=== PATIENT | male | born 1955 | race African-American/Black ===

== ENCOUNTER 2017-08-16 05:40 | Day surgery (SDC) | payer MEDICAID ==
[2017-08-15 14:27] LABS: BASOPHILS 0.2 % (0-2); EOSINOPHILS 6.2 % (0-7); HEMATOCRIT 41.8 % (42.0-54.0); HEMOGLOBIN 13.8 g/dL (13.5-17.5); IMMATURE GRANULOCYTES 0.2 % (0-5); LYMPHOCYTES 34.9 % (15-50); MCV 93.9 fL (80.0-100.0); MEAN PLATELET VOLUME 9.6 fL (7.4-10.4); MONOCYTES 7.9 % (2-11); NEUTROPHILS 50.6 % (40-80); PLATELET COUNT 164 10x3/uL (130-400); RBC 4.45 10x6/uL (4.20-6.10); WBC 5.3 10x3/uL (4.8-10.8)
[2017-08-15 14:39] LABS: CALCIUM 8.9 mg/dL (8.5-10.1); CARBON DIOXIDE 26.4 mmol/L (21.0-32.0); CREATININE - SERUM 1.2 mg/dL (0.6-1.3); POTASSIUM - SERUM 4.4 mmol/L (3.5-5.1)
[~2017-08-16] VITALS: Ht 185.4 cm; Wt 95.7 kg
--- NOTE | ~2017-08-16 | OP ---
PATIENT NAME: NIKITA BRADLEY MEDICAL RECORD: [id number] LOCATION:D[facility]OPS ADMISSION DATE: SURGEON: REINIER METZGER MD DATE OF OPERATION: 08/16/2017 PREOPERATIVE DIAGNOSES: 1. Left inguinal hernia. 2. Hypertension. 3. Rheumatoid arthritis. POSTOPERATIVE DIAGNOSES: 1. Left inguinal hernia. 2. Hypertension. 3. Rheumatoid arthritis. PROCEDURE: Left inguinal hernia repair with medium PHS mesh. SURGEON: Reinier Metzger MD REPORT OF PROCEDURE: The patient's left groin was prepped and draped in sterile fashion. An oblique incision was made above the inguinal ligament. Electrocautery was used to dissect through the subcutaneous tissue to the external oblique fascia. This fascia was opened up using electrocautery down to the external ring. The spermatic cord was elevated and a Negley was placed around it. The ilioinguinal nerve was found and high ligated. The patient did not have a distinct hernia defect, but he had a direct and indirect cord lipoma, which were both moderately large. These cord lipomas were high ligated with 2-0 silks. The remainder of the inguinal floor appeared to be intact. The spermatic cord had no sign of any hernia sac. An opening was made in the inguinal floor and the preperitoneal space of Retzius was opened up in all directions. A medium PHS mesh was inserted and sutured down on all sides using interrupted 0 Vicryls. The wound was irrigated out with normal saline and care was taken to make sure there was no sign of any bleeding. The external oblique fascia was then closed with running 2-0 Vicryl, Rita's was closed with interrupted 3-0 Vicryls and the skin was closed with running subcutaneous 5-0 Monocryl. A total of 10 mL of 0.25% Marcaine with epinephrine was infused into the surrounding tissues and the wounds were dressed appropriately. COMPLICATIONS: None. CONDITION: Stable. ANESTHESIA: General endotracheal and local. BLOOD LOSS: Minimal. TRANSINT:[id number] Voice Confirmation ID: [id number] DOCUMENT ID: [id number] OPERATIVE REPORT [id number] NIKITA BRADLEY REINIER METZGER MD CC: YAN GAY MD [id number] DICTATION DATE: 08/16/17 1025 PLUMBING ENGINEER: 08/16/17 [id number] [place] [address]
[~2017-08-16 05:40] MED LIST: FOLIC ACID1 MG PO; METHOTREXATE2.5 MG PO; NORVASC5 MG PO; PREDNISONE1 MG PO
[2017-08-16 06:58] VITALS: BP 128/78; Ht 185.4 cm; Wt 95.7 kg
[2017-08-16] MEDS ORDERED: HYDROCODONE-APA1 TAB PO (10:21)
== END 2017-08-16 13:05 | disposition home or self-care (01) ==
LOC: D.OPS 05:40
PROVIDERS: Surgery
DX: K40.90 Unilateral inguinal hernia, without obstruction or gangrene, not specified as recurrent (principal); I10 Essential (primary) hypertension; Z01.812 Encounter for preprocedural laboratory examination